=== PATIENT | male | born 1950 | race Caucasian/White ===

== ENCOUNTER → 2023-10-29 10:00 | Outpatient (REF) | payer BC, SELFPAY ==
[2023-10-29 12:22] LABS: Urine Albumin Negative (Neg - Trace); Urine Bilirubin Negative (Negative); Urine Character Clear (Clear); Urine Color Yellow; Urine Glucose 3+ (Negative); Urine Ketone Negative (Negative); Urine Leukocyte Negative (Negative); Urine Nitrite Negative (Negative); Urine Occult Blood Negative (Negative); Urine Specific Gravity 1.015 (<1.030); Urine Urobilinogen Negative (Neg - 1+)
[2023-10-29 12:47] LABS: Albumin 3.5 g/dl (3.5-5.0); Blood Urea Nitrogen 22 mg/dl (9-20); Calcium 8.8 mg/dl (8.4-10.2); Carbon Dioxide 22 mmol/L (22-30); Chloride 106 mmol/L (98-107); Glucose 187 mg/dl (70-99); Iron 60 ug/dl (49-181); Phosphorus 4.4 mg/dl (2.5-4.5); Potassium 4.3 mmol/L (3.5-5.1); Sodium 133 mmol/L (135-145)
[2023-10-29 12:55] LABS: Percent Saturation 22 % (20-50); Total Iron Binding Capacity 272 ug/dl (261-462)
[2023-10-29 13:01] LABS: Vitamin D, 25-OH*** 46.7 ng/mL (30-80)
[2023-10-29 13:06] LABS: Protein/creatinine Ratio 0.1; Urine Protein 14 mg/dl
[2023-10-29 13:21] LABS: Microalbumin, Random Urine < 0.6 mg/dl (0.6-1.7)
[2023-10-29 13:28] LABS: % Basophils 0.7 % (0-2); % Immature Granulocytes 0.5 % (0-0.5); % Lymphocytes 10.8 % (20.5-51.1); % Monocytes 9.9 % (1.7-9.3); % Neutrophils 70.1 % (42.2-75.2); Absolute Eosinophils 0.5 10^3/uL (0-0.7); Absolute Lymphocytes 0.7 10^3/uL (1.2-3.4); Absolute Monocytes 0.6 10^3/uL (0.1-0.6); Absolute Neutrophils 4.3 10^3/uL (1.4-6.5); Hematocrit 45.7 % (39.0-52.0); Hemoglobin 15.2 g/dL (13.0-18.0); Mean Corp Hgb Conc. 33.3 g/dL (33.0-37.0); Mean Corpuscular Hgb 29.9 pg (27.0-31.0); Mean Platelet Volume 10.6 fL (7.4-10.4); Nucleated Red Blood Cells % 0 % (-); Platelet Count 194 10^3/uL (130-400); Red Blood Cell Count 5.08 10^6/uL (4.70-6.10); Red Cell Dist. Width 13.2 % (11.5-14.5); White Blood Cell Count 6.1 10^3/uL (4.8-10.8)
[2023-10-30 12:10] LABS: Intact PTH 26.8 pg/ml (13.6-85.8)
[2023-10-31 23:36] LABS: 24 Hour Urine Total Volume Random mL; Urine Collection Length Random hr; Urine Free Lambda Light Chains 16.27 mg/L (0.00-3.79)
[2023-11-02 11:26] LABS: Albumin 3.54 g/dL (3.75-5.01); Alpha 2 Globulin 0.94 g/dL (0.48-1.05); SPEP IFE Reflex IFE Done; Total Protein-Electrophoresis 6.2 g/dL (6.3-8.2)
[2023-11-02 11:28] LABS: IgA 98 mg/dL (68-408); IgG 551 mg/dL (768-1632); IgM 42 mg/dL (35-263)
== END ==
LOC: HWLAB 10:00
PROVIDERS: ATTENDING PHYSICIAN Nurse Practitioner Adult Health; FAMILY PHYSICIAN Physician Assistant Medical; REFERRING PHYSICIAN Specialist
DX: N18.32 Chronic kidney disease, stage 3b (principal); E53.9 Vitamin B deficiency, unspecified; D50.9 Iron deficiency anemia, unspecified
CPT/HCPCS: 36415; 80069; 81003; 82043; 82306; 82570; 82728; 82784; 83521; 83540; 83550; 83970; 84155; 84156; 84165; 85025; 86334; 86335

== ENCOUNTER → 2024-03-22 06:30 | Outpatient (REF) | payer BC, SELFPAY ==
[2024-03-22 15:10] LABS: ALT (SGPT) 26 U/L (0-50); AST (SGOT) 23 U/L (17-59); Albumin 3.7 g/dl (3.5-5.0); Alkaline Phosphatase 66 U/L (38-126); Blood Urea Nitrogen 24 mg/dl (9-20); Calcium 9.2 mg/dl (8.4-10.2); Carbon Dioxide 25 mmol/L (22-30); Chloride 106 mmol/L (98-107); Glucose 172 mg/dl (70-99); HDL Cholesterol 45 mg/dl; LDL Cholesterol, Calculated 53 mg/dl; Potassium 4.9 mmol/L (3.5-5.1); Sodium 137 mmol/L (135-145); Total Bilirubin 0.6 mg/dl (0.2-1.3); Total Cholesterol 129 mg/dl (50-199); Total Protein 5.8 g/dl (6.3-8.2); Triglyceride 158 mg/dl (10-149); Very Low Density Lipoprotein 31 mg/dl (0-30)
== END ==
LOC: HWLAB 06:30
PROVIDERS: ATTENDING PHYSICIAN Physician Assistant Medical
DX: E11.59 Type 2 diabetes mellitus with other circulatory complications (principal); I25.10 Atherosclerotic heart disease of native coronary artery without angina pectoris; N18.31 Chronic kidney disease, stage 3a
CPT/HCPCS: 36415; 80053; 80061; 83036

== ENCOUNTER → 2024-04-28 06:19 | Outpatient (REF) | payer BC, SELFPAY ==
[2024-04-28 09:38] LABS: % Basophils 0.7 % (0-2); % Immature Granulocytes 0.6 % (0-0.5); % Lymphocytes 19.4 % (20.5-51.1); % Monocytes 10.2 % (1.7-9.3); % Neutrophils 64.1 % (42.2-75.2); Absolute Eosinophils 0.3 10^3/uL (0-0.7); Absolute Lymphocytes 1.1 10^3/uL (1.2-3.4); Absolute Monocytes 0.6 10^3/uL (0.1-0.6); Absolute Neutrophils 3.5 10^3/uL (1.4-6.5); Hematocrit 45.9 % (39.0-52.0); Hemoglobin 15.2 g/dL (13.0-18.0); Mean Corp Hgb Conc. 33.1 g/dL (33.0-37.0); Mean Corpuscular Hgb 29.6 pg (27.0-31.0); Mean Corpuscular Volume 89.5 fL (80.0-94.0); Mean Platelet Volume 10.7 fL (7.4-10.4); Nucleated Red Blood Cells % 0 % (-); Platelet Count 187 10^3/uL (130-400); Red Blood Cell Count 5.13 10^6/uL (4.70-6.10); White Blood Cell Count 5.4 10^3/uL (4.8-10.8)
[2024-04-28 10:11] LABS: ALT (SGPT) 33 U/L (0-50); AST (SGOT) 28 U/L (17-59); Alkaline Phosphatase 68 U/L (38-126); Blood Urea Nitrogen 34 mg/dl (9-20); Calcium 9.4 mg/dl (8.4-10.2); Carbon Dioxide 24 mmol/L (22-30); Chloride 108 mmol/L (98-107); Glucose 151 mg/dl (70-99); Iron 116 ug/dl (49-181); Potassium 4.8 mmol/L (3.5-5.1); Sodium 144 mmol/L (135-145); Total Bilirubin 0.6 mg/dl (0.2-1.3); Total Protein 6.1 g/dl (6.3-8.2)
[2024-04-28 10:21] LABS: Percent Saturation 37 % (20-50); Total Iron Binding Capacity 312 ug/dl (261-462)
[2024-04-28 10:52] LABS: Ferritin 32.5 ng/ml (17.9-464.0)
[2024-04-28 11:23] LABS: Folate 14.4 ng/ml (2.76-20); Vitamin B12 859 pg/ml (239-931)
== END ==
LOC: HWLAB 06:19
PROVIDERS: ATTENDING PHYSICIAN Internal Medicine Hematology & Oncology; FAMILY PHYSICIAN Physician Assistant Medical
DX: E53.9 Vitamin B deficiency, unspecified (principal); D50.9 Iron deficiency anemia, unspecified
CPT/HCPCS: 36415; 80053; 82232; 82607; 82728; 82746; 82784; 83521; 83540; 83550; 84155; 84165; 85025; 86334

== ENCOUNTER → 2024-07-19 06:10 | Outpatient (REF) | payer BC, SELFPAY ==
[2024-07-19 09:51] LABS: ALT (SGPT) 32 U/L (0-50); AST (SGOT) 26 U/L (17-59); Albumin 3.9 g/dl (3.5-5.0); Alkaline Phosphatase 59 U/L (38-126); Blood Urea Nitrogen 27 mg/dl (9-20); Carbon Dioxide 25 mmol/L (22-30); Chloride 107 mmol/L (98-107); Glucose 149 mg/dl (70-99); Potassium 4.4 mmol/L (3.5-5.1); Sodium 142 mmol/L (135-145); Total Bilirubin 0.4 mg/dl (0.2-1.3); eGFR 36.79
[2024-07-19 10:17] LABS: PSA, Total - Screen 2.57 ng/ml (0.0-4.0)
[2024-07-19 10:21] LABS: Glycohemoglobin (HgbA1c) 7.1 % (4.0-5.6)
[2024-07-19 10:50] LABS: Microalbumin, Random Urine <0.6 mg/dl (0.6-1.7)
== END ==
LOC: HWLAB 06:10
PROVIDERS: ATTENDING PHYSICIAN Specialist; FAMILY PHYSICIAN Physician Assistant Medical
DX: E11.59 Type 2 diabetes mellitus with other circulatory complications (principal); R35.0 Frequency of micturition; Z12.5 Encounter for screening for malignant neoplasm of prostate
CPT/HCPCS: 36415; 80053; 82043; 82570; 83036; G0103

== ENCOUNTER → 2024-08-15 12:33 | Outpatient (REF) | payer BC, SELFPAY ==
[2024-08-15 15:58] LABS: % Basophils 0.3 % (0-2); % Eosinophils 1.5 % (0-6); % Immature Granulocytes 0.6 % (0-0.5); % Lymphocytes 12.2 % (20.5-51.1); % Monocytes 6.7 % (1.7-9.3); % Neutrophils 78.7 % (42.2-75.2); Absolute Eosinophils 0.1 10^3/uL (0-0.7); Absolute Lymphocytes 0.8 10^3/uL (1.2-3.4); Absolute Monocytes 0.4 10^3/uL (0.1-0.6); Absolute Neutrophils 5.2 10^3/uL (1.4-6.5); Hematocrit 46.5 % (39.0-52.0); Hemoglobin 15.3 g/dL (13.0-18.0); Mean Corp Hgb Conc. 32.9 g/dL (33.0-37.0); Mean Corpuscular Volume 94.3 fL (80.0-94.0); Mean Platelet Volume 10.4 fL (7.4-10.4); Nucleated Red Blood Cells % 0 % (-); Platelet Count 160 10^3/uL (130-400); Red Blood Cell Count 4.93 10^6/uL (4.70-6.10); Red Cell Dist. Width 13.5 % (11.5-14.5); White Blood Cell Count 6.6 10^3/uL (4.8-10.8)
[2024-08-15 16:20] LABS: Iron 119 ug/dl (49-181)
[2024-08-15 16:30] LABS: Percent Saturation 39 % (20-50); Total Iron Binding Capacity 305 ug/dl (261-462)
[2024-08-15 16:57] LABS: Ferritin 48.9 ng/ml (17.9-464.0)
== END ==
LOC: HWLAB 12:33
PROVIDERS: ATTENDING PHYSICIAN Internal Medicine Hematology & Oncology; FAMILY PHYSICIAN Physician Assistant Medical
DX: E53.9 Vitamin B deficiency, unspecified (principal); D50.9 Iron deficiency anemia, unspecified
CPT/HCPCS: 36415; 82728; 83540; 83550; 85025

== ENCOUNTER → 2024-10-17 06:30 | Outpatient (REF) | payer OTHER, SELFPAY ==
[2024-10-17 10:08] LABS: ALT (SGPT) 24 U/L (0-50); AST (SGOT) 20 U/L (17-59); Albumin 3.7 g/dl (3.5-5.0); Alkaline Phosphatase 66 U/L (38-126); Blood Urea Nitrogen 25 mg/dl (9-20); Calcium 9.3 mg/dl (8.4-10.2); Carbon Dioxide 25 mmol/L (22-30); Chloride 108 mmol/L (98-107); Glucose 142 mg/dl (70-99); Potassium 4.1 mmol/L (3.5-5.1); Sodium 139 mmol/L (135-145); Total Bilirubin 0.7 mg/dl (0.2-1.3); eGFR 53.07
[2024-10-17 10:25] LABS: Glycohemoglobin (HgbA1c) 6.6 % (4.0-5.6)
== END ==
LOC: HWLAB 06:30
PROVIDERS: ATTENDING PHYSICIAN Physician Assistant Medical
DX: E11.59 Type 2 diabetes mellitus with other circulatory complications (principal)
CPT/HCPCS: 36415; 80053; 83036

== ENCOUNTER → 2024-10-25 06:57 | Outpatient (REF) | payer OTHER, SELFPAY | LOC: RAD 06:57 | PROVIDERS: ATTENDING PHYSICIAN Podiatrist Foot & Ankle Surgery; FAMILY PHYSICIAN Physician Assistant Medical | DX: I73.9 Peripheral vascular disease, unspecified (principal) | CPT/HCPCS: 93922; 93925 ==

== ENCOUNTER → 2024-11-11 06:11 | Outpatient (REF) | payer OTHER, SELFPAY ==
[2024-11-11 09:48] LABS: % Basophils 0.9 % (0-2); % Eosinophils 3.6 % (0-6); % Immature Granulocytes 0.6 % (0-0.5); % Lymphocytes 19.5 % (20.5-51.1); % Monocytes 11.9 % (1.7-9.3); % Neutrophils 63.5 % (42.2-75.2); Absolute Basophils 0.1 10^3/uL (0-0.2); Absolute Eosinophils 0.2 10^3/uL (0-0.7); Absolute Lymphocytes 1.2 10^3/uL (1.2-3.4); Absolute Monocytes 0.8 10^3/uL (0.1-0.6); Hematocrit 45.6 % (39.0-52.0); Hemoglobin 15.3 g/dL (13.0-18.0); Mean Corp Hgb Conc. 33.6 g/dL (33.0-37.0); Mean Corpuscular Hgb 30.7 pg (27.0-31.0); Mean Corpuscular Volume 91.4 fL (80.0-94.0); Mean Platelet Volume 10.2 fL (7.4-10.4); Nucleated Red Blood Cells % 0 % (-); Platelet Count 170 10^3/uL (130-400); Red Blood Cell Count 4.99 10^6/uL (4.70-6.10); Red Cell Dist. Width 13.2 % (11.5-14.5); White Blood Cell Count 6.3 10^3/uL (4.8-10.8)
[2024-11-11 10:07] LABS: Iron 98 ug/dl (49-181)
[2024-11-11 10:17] LABS: Percent Saturation 34 % (20-50); Total Iron Binding Capacity 288 ug/dl (261-462)
[2024-11-11 10:44] LABS: Ferritin 68.4 ng/ml (17.9-464.0)
== END ==
LOC: HWLAB 06:11
PROVIDERS: ATTENDING PHYSICIAN Internal Medicine Hematology & Oncology; FAMILY PHYSICIAN Physician Assistant Medical
DX: E53.9 Vitamin B deficiency, unspecified (principal); D50.9 Iron deficiency anemia, unspecified
CPT/HCPCS: 36415; 82728; 83540; 83550; 85025

== ENCOUNTER 2025-01-30 08:49 | Emergency (ER) | payer OTHER, SELFPAY ==
[2025-01-30 08:50] VITALS: BP 159/78
[2025-01-30] MEDS: NSS 1000 IV (09:18)
[2025-01-30] MEDS: IMITREX 6 MG SC (09:21)
[2025-01-30 09:28] LABS: % Basophils 0.4 % (0-2); % Eosinophils 3.1 % (0-6); % Immature Granulocytes 0.4 % (0-0.5); % Lymphocytes 13.8 % (20.5-51.1); % Monocytes 16.3 % (1.7-9.3); Absolute Eosinophils 0.2 10^3/uL (0-0.7); Absolute Lymphocytes 0.7 10^3/uL (1.2-3.4); Absolute Monocytes 0.8 10^3/uL (0.1-0.6); Absolute Neutrophils 3.4 10^3/uL (1.4-6.5); Hematocrit 42.7 % (39.0-52.0); Hemoglobin 14.3 g/dL (13.0-18.0); Mean Corp Hgb Conc. 33.5 g/dL (33.0-37.0); Mean Corpuscular Hgb 31.4 pg (27.0-31.0); Mean Corpuscular Volume 93.6 fL (80.0-94.0); Mean Platelet Volume 10.4 fL (7.4-10.4); Nucleated Red Blood Cells % 0 % (-); Platelet Count 165 10^3/uL (130-400); Red Blood Cell Count 4.56 10^6/uL (4.70-6.10); Red Cell Dist. Width 14.2 % (11.5-14.5); White Blood Cell Count 5.1 10^3/uL (4.8-10.8)
[2025-01-30 09:40] VITALS: BMI 26.3
[2025-01-30 09:53] LABS: ALT (SGPT) 20 U/L (0-50); AST (SGOT) 17 U/L (17-59); Albumin 3.5 g/dl (3.5-5.0); Alkaline Phosphatase 66 U/L (38-126); Blood Urea Nitrogen 32 mg/dl (9-20); Carbon Dioxide 22 mmol/L (22-30); Chloride 115 mmol/L (98-107); Estimated Creatinine Clearance 42 ml/min; Glucose 159 mg/dl (70-99); Potassium 4.1 mmol/L (3.5-5.1); Sodium 143 mmol/L (135-145); Total Bilirubin 0.5 mg/dl (0.2-1.3); Total Protein 5.7 g/dl (6.3-8.2); eGFR 45.21
--- NOTE | 2025-01-30 10:16 | ED.GENMED ---
History of Present Illness
General
Chief Complaint: Abdominal Symptoms
Source: patient and spouse
Exam Limitations: none
Time Seen by Provider: 01/30/25 09:03
Nursing documentation reviewed up to this point in time: agreed with
History of Present Illness
History of Present Illness:
Patient presents to ED secondary to persistent nonbloody diarrhea over the past 4 days, along with decreased appetite. Denies fever or chills. Denies abdominal pain. Denies nausea or vomiting. Denies recent travel. Denies recent change in
medications or diet. Denies sick contact. Denies dizziness. Denies weakness. Denies shortness of breath.
Past History
Past History
ED Past Medical History: HTN, Hypercholesterolemia and NIDDM
Social History
Tobacco: Non-smoker
Alcohol: None
Drug: None
Personal:
Living: with family
Employment: Retired
Review of Systems
Review of Systems
Allergies reviewed?: Yes
All Other Systems: ROS reviewed and negative except as documented in HPI and ROS
Constitutional: Reports no symptoms; Denies fever
EENT: Reports no symptoms
Respiratory: Reports no symptoms; Denies trouble breathing
Cardiac: Reports no symptoms; Denies palpitations
ABD/GI: Reports diarrhea; Denies abdominal pain or vomiting
Musculoskeletal: Reports no symptoms
Skin: Reports no symptoms
Neurological: Reports no symptoms; Denies weakness
Phy Exam
Physical Exam
Physical Exam:
Physical Exam
General: no apparent distress, not acutely ill. afebrile
Head: nc/at. eomi
Neck: supple. normal range of motion
Heart: s1/s2 regular rate and rhythm
Lungs: no acute respiratory distress.
Abdomen: normal bowel sounds. not tender.
Neuro: alert and oriented x 3. no focal neurological deficits
Skin: no rash
Psychiatric: well kept. interactive and cooperative
Extremities: no edema. no calf tenderness.
Course
Orders/Labs/Results
Orders:
Orders
01/30/25 09:16
0.9% Sodium Chloride 1000 ml [Nss] 1,000 ml IV BOLUS
01/30/25 09:18
Complete Blood Count/With Diff Urgent
Comprehensive Metabolic Panel Urgent
Magnesium Urgent
Sumatriptan Succinate [Imitrex] 6 mg SC NOW STA
01/30/25 11:25
Stool Culture Urgent
LESLIE Source: Feces/Stool
Specimen Description:
Date Specimen was Collected: 01/30/25
Time Specimen was Collected: 11:17
Abnormal Lab Results
01/30/25
09:18
RBC 4.56 L 10^6/uL
(4.70-6.10)
MCH 31.4 H pg
(27.0-31.0)
Absolute Lymphs (auto) 0.7 L 10^3/uL
(1.2-3.4)
Absolute Monos (auto) 0.8 H 10^3/uL
(0.1-0.6)
Lymphocytes % 13.8 L %
(20.5-51.1)
Monocytes % 16.3 H %
(1.7-9.3)
Chloride 115 H mmol/L
(98-107)
BUN 32 H mg/dl
(9-20)
Creatinine 1.6 H mg/dL
(0.7-1.3)
Glucose 159 H mg/dl
(70-99)
Total Protein 5.7 L g/dl
(6.3-8.2)
01/30/25 09:18
01/30/25 09:18
Vital Signs
Initial and Last Documented VS:
Initial Vital Signs
Temp Pulse Resp BP Pulse Ox
97.7 F 76 18 159/78 99
01/30/25 08:50 01/30/25 08:50 01/30/25 08:50 01/30/25 08:50 01/30/25 08:50
Last Documented Vital Signs
Temp Pulse Resp BP Pulse Ox
97.7 F 91 16 144/84 99
01/30/25 08:50 01/30/25 13:42 01/30/25 13:42 01/30/25 13:42 01/30/25 13:42
MDM/Problems Addressed
MDM/Problems Addressed:
History and exam consistent with diarrhea secondary to viral illness vs medication effect (Ozempic). Blood work reviewed and discussed with patient/spouse, including mild increase in creatinine from baseline. Feel comfortable going home at this
time, but will return with worsening symptoms.
Stool cx pending
*Pulse Oximetry
Patient hypoxic: no (99%)
*Critical Care Note
Total Time (30-74mins, 75-104mins- exclusive of procedures): Not Applicable
ED Attending Note
-
Portions of this chart may have been created with voice recognition software.� Occasional wrong word or��sound alike� substitutions may have occurred due to the inherent limitations of voice recognition software.
Discharge Plan
Departure
Patient Disposition: Home (Routine Discharge)
Date of Disposition: 01/30/25
Time of Disposition: 13:36
Patient with high blood pressure during this ER visit?: Yes
Condition: Fair
Discharge Problem:
Diarrhea
Instructions: Diarrhea in teens and adults
Prescriptions:
No Action
glimepiride 1 MG tablet
1 mg PO BID
tamsulosin 0.4 MG capsule
0.4 mg PO BID
clopidogrel 75 MG tablet
75 mg PO DAILY Qty: 30 11RF
aspirin 81 MG tablet,delayed release (DR/EC)
81 mg PO DAILY 0RF
atorvastatin 80 MG tablet
40 mg PO QPM
azelastine [Optivar] 0.05 % drops
1 drp BOTH EYES BIDPRN PRN (Reason: dry eyes)
metoprolol succinate 50 MG tablet extended release 24 hr
50 mg PO DAILY
cephalexin 500 MG capsule
2,000 mg PO PRN PRN (Reason: prior to dentist appt)
azelastine 1 SPRAY aerosol,spray
2 spray intranasal DAILYPRN PRN (Reason: allergies)
finasteride 5 MG tablet
5 mg PO DAILY
coenzyme Q10 [Co Q-10] 200 MG capsule
200 mg PO DAILY
sitagliptin phos-metformin [Janumet] 1 EACH tablet
1 ea PO BID
magnesium oxide 500 MG capsule
500 mg PO DAILY
lysine HCl 500 MG capsule
500 mg PO BID
Referrals:
Cathie Hines PA-C [Family Provider, Family Practice]
Activity Restrictions/Additional Instructions:
As discussed, please follow-up with your primary care physician with any further concerns. Please return to ED with worsening symptoms.
Interventions
Interventions:
*Risk Screen - Suicide Last Done: 01/30/25 08:50
*General Assessment Last Done: 01/30/25 08:50
*Neglect/Abuse Screening Last Done: 01/30/25 08:50
*ED- Fall Risk Assessment Last Done: 01/30/25 09:40
*ED COVID-19 Vaccine History Last Done: 01/30/25 09:40
*Nursing Disposition Last Done: 01/30/25 13:43
QH-Bzdhmw-Ujucygqzqh Assessment Last Done: 01/30/25 09:40
Discharge Date and Time
Discharge Date/Time: 01/30/25 13:43
Print Language: FINNISH
[2025-01-30 11:21] VITALS: BP 155/73
[2025-01-30 13:42] VITALS: BP 144/84
== END 2025-01-30 13:43 | disposition home or self-care (01) ==
LOC: EMR 08:49
PROVIDERS: EMERGENCY PHYSICIAN Emergency Medicine; FAMILY PHYSICIAN Physician Assistant Medical
DX: R19.7 Diarrhea, unspecified (principal); I10 Essential (primary) hypertension; E78.00 Pure hypercholesterolemia, unspecified; E11.9 Type 2 diabetes mellitus without complications
CPT/HCPCS: 96372; 99284; 96360; 80053; 83735; 85025; 87045; 87046; 87077; 87427

== ENCOUNTER → 2025-03-27 08:32 | Outpatient (REF) | payer OTHER, SELFPAY ==
[2025-03-27 13:07] LABS: ALT (SGPT) 41 U/L (0-50); AST (SGOT) 26 U/L (17-59); Albumin 4.1 g/dl (3.5-5.0); Alkaline Phosphatase 60 U/L (38-126); Blood Urea Nitrogen 27 mg/dl (9-20); Calcium 9.7 mg/dl (8.4-10.2); Carbon Dioxide 24 mmol/L (22-30); Chloride 110 mmol/L (98-107); Glucose 167 mg/dl (70-99); Potassium 4.6 mmol/L (3.5-5.1); Sodium 141 mmol/L (135-145); Total Protein 6.2 g/dl (6.3-8.2); eGFR 48.85
[2025-03-27 15:34] LABS: Glycohemoglobin (HgbA1c) 6.5 % (4.0-5.6)
== END ==
LOC: HWLAB 08:32
PROVIDERS: ATTENDING PHYSICIAN Physician Assistant Medical
DX: E11.59 Type 2 diabetes mellitus with other circulatory complications (principal)
CPT/HCPCS: 36415; 80053; 83036

== ENCOUNTER → 2025-05-09 11:34 | Outpatient (REF) | payer OTHER, SELFPAY ==
[2025-05-09 17:33] LABS: Hematocrit 45.2 % (39.0-52.0); Hemoglobin 14.5 g/dL (13.0-18.0); Mean Corp Hgb Conc. 32.1 g/dL (33.0-37.0); Mean Corpuscular Volume 91.1 fL (80.0-94.0); Nucleated Red Blood Cells % 0 % (-); Platelet Count 193 10^3/uL (130-400); Red Cell Dist. Width 13.8 % (11.5-14.5)
[2025-05-09 17:49] LABS: Iron 79 ug/dl (49-181)
[2025-05-09 17:58] LABS: Total Iron Binding Capacity 315 ug/dl (261-462)
[2025-05-09 18:25] LABS: Ferritin 43.3 ng/ml (17.9-464.0)
[2025-05-09 18:56] LABS: Folate 14.1 ng/ml (2.76-20); Vitamin B12 932 pg/ml (239-931)
== END ==
LOC: HWLAB 11:34
PROVIDERS: ATTENDING PHYSICIAN Internal Medicine Hematology & Oncology; FAMILY PHYSICIAN Physician Assistant Medical
DX: E53.9 Vitamin B deficiency, unspecified (principal); D50.9 Iron deficiency anemia, unspecified
CPT/HCPCS: 36415; 82607; 82728; 82746; 83540; 83550; 85025

== ENCOUNTER → 2025-06-08 09:38 | Outpatient (REF) | payer OTHER, SELFPAY ==
[2025-06-08 13:06] LABS: TSH 1.99 uIU/ml (0.47-4.68)
== END ==
LOC: HWLAB 09:38
PROVIDERS: ATTENDING PHYSICIAN Internal Medicine Cardiovascular Disease; FAMILY PHYSICIAN Physician Assistant Medical
DX: I25.10 Atherosclerotic heart disease of native coronary artery without angina pectoris (principal); I10 Essential (primary) hypertension
CPT/HCPCS: 36415; 84443

== ENCOUNTER → 2025-06-16 07:08 | Outpatient (REF) | payer OTHER, SELFPAY | LOC: HWRCS 07:08 | PROVIDERS: ATTENDING PHYSICIAN Internal Medicine Cardiovascular Disease; FAMILY PHYSICIAN Physician Assistant Medical | DX: I24.1 Dressler's syndrome (principal); I25.10 Atherosclerotic heart disease of native coronary artery without angina pectoris | CPT/HCPCS: 93306 ==

== ENCOUNTER → 2025-06-22 07:39 | Outpatient (REF) | payer OTHER, SELFPAY | LOC: HWRCS 07:39 | PROVIDERS: ATTENDING PHYSICIAN Internal Medicine Cardiovascular Disease; FAMILY PHYSICIAN Physician Assistant Medical | DX: I21.4 Non-ST elevation (NSTEMI) myocardial infarction (principal); I25.10 Atherosclerotic heart disease of native coronary artery without angina pectoris | CPT/HCPCS: 78452; 93017; A9500 ==

== ENCOUNTER → 2025-07-03 06:05 | Outpatient (REF) | payer OTHER, SELFPAY ==
[2025-07-03 10:24] LABS: Glycohemoglobin (HgbA1c) 6.5 % (4.0-5.9)
[2025-07-03 11:12] LABS: ALT (SGPT) 40 U/L (0-50); AST (SGOT) 27 U/L (17-59); Albumin 3.8 g/dl (3.5-5.0); Alkaline Phosphatase 69 U/L (38-126); Blood Urea Nitrogen 25 mg/dl (9-20); Calcium 9.1 mg/dl (8.4-10.2); Carbon Dioxide 26 mmol/L (22-30); Chloride 109 mmol/L (98-107); Glucose 143 mg/dl (70-99); HDL Cholesterol 48 mg/dl; LDL Cholesterol, Calculated 56 mg/dl; Potassium 4.6 mmol/L (3.5-5.1); Sodium 140 mmol/L (135-145); Total Protein 6.0 g/dl (6.3-8.2); Very Low Density Lipoprotein 23 mg/dl (0-30); eGFR 48.55
== END ==
LOC: HWLAB 06:05
PROVIDERS: ATTENDING PHYSICIAN Physician Assistant Medical
DX: E11.59 Type 2 diabetes mellitus with other circulatory complications (principal); I25.10 Atherosclerotic heart disease of native coronary artery without angina pectoris
CPT/HCPCS: 36415; 80053; 80061; 83036